=== PATIENT | male | born 1970 | race Caucasian/White ===

== ENCOUNTER → 2017-09-05 | Outpatient (CLI) | payer BC ==
[2017-09-05 12:26] LABS: BASO % 0.4 %; BASO ABS # 0.03 K/uL (0-0.2); EOS % 1.8 %; EOS ABS # 0.14 K/uL (0-0.5); HEMATOCRIT 46.5 % (42-52); HEMOGLOBIN 16.5 g/dL (14.0-18.0); IG# 0.01 K/uL (0.00-0.02); LYMPH % 28.2 %; LYMPH ABS # 2.25 K/uL (1.2-3.4); MEAN CELL VOLUME 82.4 fL (80-100); MEAN CORPUSCULAR HEMOGLOBIN 29.3 pg (25-34); MEAN CORPUSCULAR HGB CONC 35.5 g/dl (32-36); MEAN PLATELET VOLUME 9.8 fL (7.4-10.4); MONO % 9.5 %; MONO ABS # 0.76 K/uL (0.11-0.59); NEUT ABS # 4.79 K/uL (1.4-6.5); PLATELET COUNT 285 K/uL (130-400); RED CELL DISTRIBUTION WIDTH CV 13.3 % (11.5-14.5); RED CELL DISTRIBUTION WIDTH SD 40.5 fL (36.4-46.3); WHITE BLOOD COUNT 7.98 K/uL (4.8-10.8)
[2017-09-05 12:44] LABS: ALBUMIN 4.1 gm/dl (3.4-5.0); ALT/SGPT 69 U/L (12-78); AST/SGOT 30 U/L (15-37); BLOOD UREA NITROGEN 16 mg/dl (7-18); CALCIUM 9.2 mg/dl (8.5-10.1); CARBON DIOXIDE 26 mmol/L (21-32); CREATININE 1.04 mg/dl (0.60-1.40); GLUCOSE 92 mg/dl (70-99); POTASSIUM 4.7 mmol/L (3.5-5.1); SODIUM 137 mmol/L (136-145)
[2017-09-05 12:48] LABS: ALKALINE PHOSPHATASE 99 U/L (45-117); CHOLESTEROL 224 mg/dl (0-200); LDL CHOLESTEROL CALCULATED 160 mg/dl; TOTAL PROTEIN 7.9 gm/dl (6.4-8.2)
== END | disposition home or self-care (01) ==
LOC: C.LAB 11:37
PROVIDERS: ATTEND Internal Medicine
DX: Z00.00 Encounter for general adult medical examination without abnormal findings (principal); M54.5 Low back pain; R06.83 Snoring; Z68.37 Body mass index [BMI] 37.0-37.9, adult; R06.89 Other abnormalities of breathing; R03.0 Elevated blood-pressure reading, without diagnosis of hypertension

== ENCOUNTER → 2017-10-01 | Outpatient (CLI) | payer BC ==
--- NOTE | 2017-10-03 13:03 | POLYSOMNOGRAPH REPORT ---
CLINICAL DATA: A 46-year-old male with BMI of 37.3, referred by Dr. Dunham with a history of loud snoring. He stops breathing at night. He sleeps on a recliner, so he does not disturb his at night. His [place] Sleepiness score is 10/24. On the evening of 10/01/2017, a home sleep apnea test was performed using a [employer] type 3 monitor. RECORDING RESULTS: Total recording time was 10 hours. The patient's monitoring time and estimated sleep time was 6.2 hours. RESPIRATORY DATA: Mild sleep apnea was documented. The ANIL was 14.6. There were 31 obstructive apneic episodes and 59 hypopneic episodes. The longest respiratory event was 56 seconds. OXIMETRY DATA: Transient nocturnal hypoxemia was seen. Oxygen dang was 75%. Mean saturation was 94%. Time below 89% was 6 minutes. HEART RATE DATA: Heart rates ranged from 40-55 beats per minute. SNORING DATA: Snoring was recorded throughout the entire night. IMPRESSION: At least mild sleep apnea/hypopnea with an ANIL of 14.6 with nocturnal hypoxemia. RECOMMENDATIONS: The patient may benefit from a repeat sleep study with CPAP, use of auto-CPAP, use of an oral appliance and/or sleep medicine consultation. Clinical correlation is needed. [facility]
== END | disposition home or self-care (01) ==
LOC: C.NEUR 10:01
PROVIDERS: ATTEND Internal Medicine
DX: Z00.00 Encounter for general adult medical examination without abnormal findings (principal); Z68.37 Body mass index [BMI] 37.0-37.9, adult; M54.5 Low back pain; R03.0 Elevated blood-pressure reading, without diagnosis of hypertension; R06.89 Other abnormalities of breathing; R06.83 Snoring; G47.30 Sleep apnea, unspecified